=== PATIENT | female | born 1960 | race Caucasian/White ===

== ENCOUNTER 2019-10-23 10:59 | Emergency (ER) | payer OTHER, SELFPAY ==
[2019-10-23 11:11] VITALS: BP 172/95; PULSE 81; RESP 16; TEMP 37.1; O2SAT 100
--- NOTE | 2019-10-23 11:20 | ED.FEMALEGU ---
HPI - Female Genitourinary General Chief complaint: Urogenital-Female Stated complaint: uti Time Seen by Provider: 10/23/19 11:20 Source: patient Mode of arrival: ambulatory Limitations: no limitations History of Present Illness HPI Narrative: Deon Thomason is a 59 yo female history of urological problems comes to express care with complaints of symptoms of UTI for the past 4 days, no fever but has suprapubic pain and some flank pain. Related Data Allergies Allergy/AdvReac Type Severity Reaction Status Date / Time No Known Allergies Allergy Unverified 10/23/19 11:19 Review of Systems Review of Systems: Narrative: CONSTITUTIONAL: Denies fever, chills, sweats. EYES: Denies visual changes, redness, discharge. ENT: Denies rhinorrhea, congestion, sore throat, otalgia. CARDIOVASCULAR: Denies chest pain, palpitations, edema. RESPIRATORY: Denies dyspnea, wheezing, cough GASTROINTESTINAL: Denies abdominal pain, nausea, vomiting, diarrhea. GENITOURINARY:Has dysuria, Nohematuria, abnormal discharge SKIN: Denies rash or itching. NEUROLOGIC: Denies numbness, or focal weakness. PSYCHIATRIC: Denies anxiety or depression. [facility] Family History Family History Other No acute medical problems Social History Social History Smoking status: Never smoker Alcohol intake: current Gender identity (if verbalized by the patient): Female Comments At time of signature, I agree with nursing past medical, surgical, social and family history. There is no relevant family history pertinent to the presenting complaint. Discussed elevated blood pressure with patient will follow-up with primary Exam Narrative: Exam Narrative: GENERAL: This is a well-nourished, well-developed patient, in mild distress. HEAD: normocephalic, atraumatic. EYES: Sclera clear/white. Vision is grossly intact. EARS: External ears normal, Hearing grossly intact. NOSE: External nose normal without nasal discharge, nares without redness, no rhinorrhea. THROAT: Mucous membranes moist NECK: Neck supple, CARDIOVASCULAR: Regular rate and rhythm without murmurs, gallops, or rubs. RESPIRATORY: Clear to auscultation. Breath sounds equal bilaterally. No wheezes, rales, or rhonchi. GASTROINTESTINAL: Supra pubic soft, tender, SKIN: warm, intact with no suspicious lesions or rash, good texture and turgor. NEURO: awake, alert, and oriented to person, place and time. There were no obvious focal neurologic abnormalities. Steady gait EXTREMITIES: Normal range of motion. BACK: Nontender without deformity Course Vital Signs Vital signs: Vital Signs Temperature 98.7 F 10/23/19 11:11 Pulse Rate 81 10/23/19 11:11 Respiratory Rate 16 10/23/19 11:11 Blood Pressure 172/95 H 10/23/19 11:11 Pulse Oximetry 100 10/23/19 11:11 Temperature 98.7 F 10/23/19 11:11 Pulse Rate 81 10/23/19 11:11 Respiratory Rate 16 10/23/19 11:11 Blood Pressure 172/95 H 10/23/19 11:11 Pulse Oximetry 100 10/23/19 11:11 MDM - Female Genitourinary Differential Diagnosis Differential diagnosis: Likely urinary tract infection, cystitis and other Lab Data Labs: Urine Glucose Negative Reference Range: Negative Urine Bilirubin Negative Reference Range: Negative Urine Ketone Negative Reference Range: Negative Urine Specific [place] 1.010 Reference Range:1.001-1.035 Urine Blood 1+ Reference Range: Negative * * Urine pH 7.0 Reference Range: 5.0-9.0 Urine Protein Negative Reference Range: Negative Urine Urobilinogen 0.2 Reference Range: 0.2-1.0 Urine Nitrate Negative Reference Range: Negative
== END 2019-10-23 11:34 | disposition home or self-care (01) ==
PROVIDERS: Emergency Provider Nurse Practitioner
DX: N30.01 Acute cystitis with hematuria (principal)
CPT/HCPCS: 81003; 87077; 87086; 87088; 87186; 99213; G0463

== ENCOUNTER 2019-11-20 09:31 | Emergency (ER) | payer OTHER, SELFPAY ==
[2019-11-20 09:43] VITALS: BP 145/77; PULSE 67; RESP 16; TEMP 36.6; O2SAT 100
--- NOTE | 2019-11-20 09:49 | ED.GENADULT ---
HPI - General Adult General Chief complaint: Urogenital-Female Stated complaint: frequent urination/burning/cramping Time Seen by Provider: 11/20/19 10:02 Source: patient and RN notes reviewed Mode of arrival: ambulatory Limitations: no limitations History of Present Illness HPI narrative: This is a 59 years old female presented office for evaluation of possible UTI for about 5days. Symptoms began with lower abdominal cramping, pressure, urinary retention, urgency, frequency and pain. Symptoms reminiscent her previous UTI. Most recent UTI was back in August, given Keflex; which she completed and symptoms completed resolved then. Related Data Allergies Allergy/AdvReac Type Severity Reaction Status Date / Time No Known Allergies Allergy Unverified 10/23/19 11:19 Review of Systems Review of Systems: Narrative: CONSTITUTIONAL: Denies fever or feeling ill CARDIOVASCULAR: Denies chest pain RESPIRATORY: Denies dyspnea, cough GASTROINTESTINAL: Denies abdominal pain, nausea, vomiting GENITOURINARY: Denies vaginal discharge SKIN: Denies rash MUSCULOSKELETAL: Reports intermittent lower back aches at times NEUROLOGIC: Denies lightheaded All other systems reviewed are negative, except as documented in HPI. PMFSH Past Medical History Medical History (Updated 11/20/19 @ 10:10 by ANA Arnett) Hx of renal calculi Surgical History Surgical History (Updated 11/20/19 @ 09:51 by ANA Arnett) Hx of bladder repair surgery Family History Family History Other No acute medical problems Social History Social History Smoking status: Never smoker Alcohol intake: current Gender identity (if verbalized by the patient): Female Comments At time of signature, I agree with nursing past medical, surgical, social and family history. There is no relevant family history pertinent to the presenting complaint. Exam Narrative: Exam Narrative: GENERAL: This is a well-nourished, well-developed patient, in no apparent distress. CARDIOVASCULAR: Regular rate and rhythm without murmurs, gallops, or rubs. RESPIRATORY: Clear to auscultation. Breath sounds equal bilaterally. No wheezes, rales, or rhonchi. GASTROINTESTINAL: Abdomen soft, non-tender, nondistended, suprapubic tenderness with palpation. Bowel sounds are active. No hepato-splenomegaly, or palpable masses. No guarding. SKIN: warm, intact with no suspicious lesions or rash, good texture and turgor. NEURO: awake, alert, and oriented to person, place and time. There were no obvious focal neurologic abnormalities. Steady gait EXTREMITIES: Normal range of motion. BACK: No flank tenderness. [employer] Coma Scale Eye Opening: Spontaneous 4 [employer] Coma Scale Motor: Obeys Commands 6 [employer] Coma Scale Verbal: Oriented 5 Course Vital Signs Vital signs: Vital Signs Temperature 97.8 F 11/20/19 09:43 Pulse Rate 67 11/20/19 09:43 Respiratory Rate 16 11/20/19 09:43 Blood Pressure 145/77 H 11/20/19 09:43 Pulse Oximetry 100 11/20/19 09:43 Temperature 97.8 F 11/20/19 09:43 Pulse Rate 67 11/20/19 09:43 Respiratory Rate 16 11/20/19 09:43 Blood Pressure 145/77 H 11/20/19 09:43 Pulse Oximetry 100 11/20/19 09:43 Medical Decision Making MDM Narrative Medical decision making narrative: Discharge instructions reviewed with patient, as well as provided in writing per nursing staff. The instructions also include specific and strict return/GO TO THE ER as well as f/u information. All questions have been answered, and the patient deny any further questions with discharge and discharge plan. Differential Diagnosis Differential Diagnosis: Cystitis, Nephrolithiasis, bacterial vaginosis, Nephritis, candidiasis, vaginitis, pyelonephritis Medical Records Medical records reviewed: Yes I reviewed the patient's medical records. Vital Signs
== END 2019-11-20 10:30 | disposition home or self-care (01) ==
PROVIDERS: Emergency Provider Nurse Practitioner
DX: N30.01 Acute cystitis with hematuria (principal); Z87.442 Personal history of urinary calculi
CPT/HCPCS: 81003; 87077; 87086; 87088; 87186; 99213; G0463

== ENCOUNTER 2020-05-15 15:42 | Emergency (ER) | payer OTHER, SELFPAY ==
[2020-05-15 15:47] VITALS: BP 153/83; PULSE 97; RESP 16; TEMP 37; O2SAT 98
--- NOTE | 2020-05-15 16:03 | ED.URI ---
HPI - URI/Sore Throat General Chief Complaint: Upper Respiratory Infection Stated Complaint: Chills/dizzy/head congestion/can't eat Time Seen by Provider: 05/15/20 16:03 Source: patient and RN notes reviewed Mode of arrival: ambulatory Limitations: no limitations History of Present Illness HPI Narrative: 60-year-old female presents with concern for several day history of chills, dizziness when she lies down, head congestion, poor appetite, generally feeling ill. Reports she has been taking Tylenol and DayQuil with little relief. She denies loss of sense of taste or smell, denies known sick contacts. MD elicited complaint: nasal congestion Related Data Allergies Allergy/AdvReac Type Severity Reaction Status Date / Time No Known Allergies Allergy Verified 05/15/20 16:05 Review of Systems Review of Systems: Narrative: CONSTITUTIONAL: Reports malaise, chills. Denies sweats, or fever. EYES: Denies visual changes, redness, or discharge. ENT: Reports rhinorrhea, congestion. Denies sinus pain, otalgia and sore throat. CARDIOVASCULAR: Denies chest pain, palpitations, or edema. RESPIRATORY: Denies cough or dyspnea. GASTROINTESTINAL: Denies abdominal pain, nausea, vomiting. Reports poor appetite and diarrhea SKIN: Denies rash or itching. MUSCULOSKELETAL: Denies myalgia. NEUROLOGIC: Reports headache. All systems reviewed & are unremarkable except as noted in HPI and below PMFSH Past Medical History Medical History (Updated 05/15/20 @ 16:29 by Sherita Garcia NP) Hx of renal calculi Surgical History Surgical History (Updated 11/20/19 @ 09:51 by ANA Arnett) Hx of bladder repair surgery Family History Family History Other No acute medical problems Social History Social History Smoking status: Never smoker Alcohol intake: current Gender identity (if verbalized by the patient): Female Comments At time of signature, agree with nursing past medical, surgical, social and family history. There is no relevant family history pertinent to the presenting complaint Exam Narrative: Exam Narrative: GENERAL: Well-appearing, well-nourished, and in no acute distress. HEAD: Normocephalic EYES: PERRLA, conjunctivae clear ENT: Nares clear, turbinates erythematous, clear discharge. Mucous membranes moist. TM pearly clark with sharp light reflex bilaterally; no tragal tenderness. Oropharynx not erythematous without lesions. Tonsils not enlarged and without exudate, no drooling, no hoarseness, no trismus, uvula midline. NECK: Supple. No lymphadenopathy CHEST: Clear to auscultation, breath sounds equal. No wheezing, rhonchi, rales, or stridor. No respiratory distress, speaks in full sentences. HEART: Regular rate and rhythm. No murmur heard. SKIN: Warm, dry, no rash. NEURO: Alert and oriented x3. PSYCH: Normal mood and affect Course Course Emergency Course: Patient is aware of diagnosis, understands and agrees to treatment plan. Anticipatory guidance given. Patient agrees to follow-up as directed and is aware of reasons to seek care at the emergency department. Portions of this record may have been created with voice recognition software Vital Signs Vital signs: Vital Signs Temperature 98.6 F 05/15/20 15:47 Pulse Rate 97 05/15/20 15:47 Respiratory Rate 16 05/15/20 15:47 Blood Pressure 153/83 H 05/15/20 15:47 Pulse Oximetry 98 05/15/20 15:47 Temperature 98.6 F 05/15/20 15:47 Pulse Rate 97 05/15/20 15:47 Respiratory Rate 16 05/15/20 15:47 Blood Pressure 153/83 H 05/15/20 15:47 Pulse Oximetry 98 05/15/20 15:47 Reviewed. Patient has been instructed to follow up with her primary care provider within the next week regarding her elevated blood pressure today. MDM - URI/Sore Throat MDM Narrative Medical decision making narrative: Differential diagnosis considered: Amrie virus,
== END 2020-05-15 16:38 | disposition home or self-care (01) ==
PROVIDERS: Emergency Provider Nurse Practitioner
DX: J06.9 Acute upper respiratory infection, unspecified (principal); Z20.828 Contact with and (suspected) exposure to other viral communicable diseases
CPT/HCPCS: 87804; 99213; G0463

== ENCOUNTER 2020-05-16 06:57 | Outpatient (NON) | payer OTHER, SELFPAY ==
[2020-05-16 22:42] LABS: SARS-CoV-2 RNA PCR Positive
== END 2020-05-16 06:58 ==
LOC: ANHCOVIDDT 07:03
PROVIDERS: Visit Provider Nurse Practitioner
DX: U07.1 COVID-19 (principal)
CPT/HCPCS: 87635; C9803; U0003

== ENCOUNTER 2021-02-26 17:24 | Emergency (ER) | payer OTHER, SELFPAY ==
--- NOTE | 2021-02-26 17:27 | ED.FEMALEGU ---
HPI - Female Genitourinary General Chief complaint: Urogenital-Female Stated complaint: POS UTI Time Seen by Provider: 02/26/21 17:27 Source: patient and RN notes reviewed History of Present Illness HPI Narrative: Patient is a 61-year-old female who presents the urgent care with complaints of a possible UTI. Patient states that for the last 2 days she has been having some lower abdominal cramping when she urinates as well as cloudy urine. Patient states that these are her normal symptoms for UTI . Patient does have history of UTIs but denies of any treatment in the last 6 months. Patient denies of any fever, chills, nausea, vomiting. Patient has increased her water intake but denies of any use of [id number] medications. No other complaints. No acute distress noted. Patient aware of the plan of care. Some parts of this dictation were generated by voice recognition software and may contain typographical and/or grammatical inaccuracies. Related Data Allergies Allergy/AdvReac Type Severity Reaction Status Date / Time No Known Allergies Allergy Verified 05/15/20 16:05 Review of Systems Review of Systems: CONSTITUTIONAL: Denies fever, chills, or sweats. EYES: Denies visual changes, redness, or discharge. ENT: Denies rhinorrhea, congestion, sore throat, or otalgia. CARDIOVASCULAR: Denies chest pain, palpitations, or edema. RESPIRATORY: Denies cough or dyspnea. GASTROINTESTINAL: Denies abdominal pain, nausea, vomiting, or diarrhea. GENITOURINARY: reports of cloudy urine and suprapubic pressure with urination SKIN: Denies rash or itching. MUSCULOSKELETAL: Denies back pain, joint pain, or myalgia. NEUROLOGIC: Denies headache, numbness, or weakness. All other systems reviewed are negative, except as documented in HPI. [facility] Past Medical History Medical History (Updated 02/26/21 @ 17:49 by ANA Sandra) Hx of renal calculi Surgical History Surgical History (Updated 11/20/19 @ 09:51 by ANA Arnett) Hx of bladder repair surgery Family History Family History Other No acute medical problems Social History Social History Smoking status: Never smoker Alcohol intake: current Gender identity (if verbalized by the patient): Female Comments At the time of my signature, I reviewed and agree with the nursing past medical, surgical, social, and family history. There is no relevant family history pertinent to the patient complaint. Exam Narrative: GENERAL: This is a well-nourished, well-developed patient, in no apparent distress. HEAD: normocephalic, atraumatic. EYES: PERRL. Sclera clear/white. Vision is grossly intact. EARS: External ears normal NOSE: External nose normal with no obvious nasal discharge, nares without redness, no rhinorrhea. THROAT: Mucous membranes moist NECK: Neck supple CARDIOVASCULAR: Regular rate and rhythm without murmurs, gallops, or rubs. RESPIRATORY: Clear to auscultation. Breath sounds equal bilaterally. No wheezes, rales, or rhonchi. GASTROINTESTINAL: Abdomen soft, non-tender, nondistended. Bowel sounds are active. SKIN: warm, intact with no suspicious lesions or rash, good texture and turgor. NEURO: awake, alert, and oriented to person, place and time. There were no obvious focal neurologic abnormalities. EXTREMITIES: No clubbing, cyanosis, or edema. BACK: Negative bilateral CVA tenderness Course Vital Signs Vital signs: Vital Signs Temperature 98.1 F 02/26/21 17:33 Pulse Rate 89 02/26/21 17:33 Respiratory Rate 16 02/26/21 17:33 Blood Pressure 161/88 H 02/26/21 17:33 Pulse Oximetry 99 02/26/21 17:33 Temperature 98.1 F 02/26/21 17:33 Pulse Rate 89 02/26/21 17:33 Respiratory Rate 16 02/26/21 17:33 Blood Pressure 161/88 H 02/26/21 17:33 Pulse Oximetry 99 02/26/21 17:33 Reviewed-patient is informed that they may h
[2021-02-26 17:33] VITALS: BP 161/88; PULSE 89; RESP 16; TEMP 36.7; O2SAT 99
== END 2021-02-26 17:54 | disposition home or self-care (01) ==
PROVIDERS: Emergency Provider Nurse Practitioner Family
DX: N39.0 Urinary tract infection, site not specified (principal)
CPT/HCPCS: 81003; 87077; 87086; 87088; 87186; 99213; G0463

== ENCOUNTER → 2022-08-02 15:20 | Outpatient (CLI) | payer BC, SELFPAY ==
--- NOTE | ~2022-08-02 | MM_ITS ---
EXAMINATION: MM screening hilaria BI w ricky HISTORY: Screening TECHNIQUE: Craniocaudal and mediolateral oblique 3-D tomosynthesis images were obtained and synthetic 2-D images were generated. CAD analysis was submitted and interpreted. COMPARISON: No prior mammogram is available for comparison at this institution. BREAST PARENCHYMAL COMPOSITION: There are scattered areas of fibroglandular density. FINDINGS: There is no evidence of suspicious mass, calcification, or architectural distortion to sugg est malignancy in either breast. There has been no suspicious interval change. IMPRESSION: 1. No mammographic evidence of malignancy. 2. Recommend routine screening mammography in one year. BI-RADS Category 1: Negative Reviewed, dictated and finalized at location B. [employer] RELATIONS ADMINISTRATOR
== END ==
PROVIDERS: PCP Family Medicine Sports Medicine; Visit Provider Family Medicine Sports Medicine
DX: Z12.31 Encounter for screening mammogram for malignant neoplasm of breast (principal)
CPT/HCPCS: 77063; 77067

== ENCOUNTER 2024-01-17 09:14 | Emergency (ER) | payer BC, SELFPAY ==
[2024-01-17 09:26] VITALS: BP 152/91; PULSE 82; RESP 16; TEMP 36.3; O2SAT 98
--- NOTE | 2024-01-17 09:38 | ED.BACK ---
HPI - Back Pain/Injury General Chief Complaint: Back Pain/Injury Stated Complaint: back pain Time Seen by Provider: 01/17/24 09:39 Source: patient, RN notes reviewed and old records reviewed Mode of arrival: ambulatory Limitations: no limitations History of Present Illness HPI Narrative: 63 year old female accompanied by spouse with complaints of right sided lower back pain for the past 5-6 days after lifting heavy. Patient reports that pain is intermittent with some muscle spasms,pulling sensation and sharp pain over right SI joint with position changes. Patient reports no pain radiating into her legs, denies any midline spinal pain or any paravertebral muscle pain. Patient reports increased pain over right SI joint area with position changes and with bending. Patient reports no bowel or bladder dysfunction or any saddle paraesthesia. Patient reports that she had spinal surgery in 2004 previously to lumbar spine, has been taking Tylenol and Ibuprofen for her discomfort with minimal pain decrease. MD elicited complaint: back pain Pertinent past history: other ( previous back surgery) Onset (ago): day(s) (5-6 days) Pain scale (0-10): 4 Quality: sharp and other (soreness) Treatments prior to arrival: NSAIDS and acetaminophen Work related injury: No Related Data Allergies Allergy/AdvReac Type Severity Reaction Status Date / Time No Known Allergies Allergy Verified 01/17/24 09:26 Review of Systems Review of Systems: CONSTITUTIONAL: Denies fever, chills, or sweats. CARDIOVASCULAR: Denies chest pain, palpitations, or edema. RESPIRATORY: Denies cough or dyspnea. GASTROINTESTINAL: Denies abdominal pain, nausea, vomiting, or diarrhea. GENITOURINARY: Denies dysuria or hematuria. SKIN: Denies rash or itching. MUSCULOSKELETAL: Reports right back pain without radiation. Joint pain or myalgia. NEUROLOGIC: Denies headache, numbness, or weakness. All systems reviewed & are unremarkable except as noted in HPI and below PMFSH Past Medical History Medical History (Updated 01/17/24 @ 12:37 by Sydnee Singh NP) Back pain Hx of renal calculi Surgical History Surgical History (Updated 01/17/24 @ 09:55 by Sydnee Singh NP) H/O Spinal surgery History of cholecystectomy Hx of bladder repair surgery Family History Family History Other No acute medical problems Social History Social History (Updated 01/17/24 @ 12:41 by Sydnee Singh NP) Smoking status: Never smoker Alcohol intake: current Substance use type: does not use Living arrangements: with family Gender identity (if verbalized by the patient): Female Comments At time of signature, agree with nursing past medical, surgical, social and family history. There is no relevant family history pertinent to the presenting complaint Exam Narrative: GENERAL: Well-appearing, well-nourished, and in no acute distress. HEAD: Normocephalic, atraumatic. EYES: PERRLA and EOMI. NECK: Supple. No lymphadenopathy. CHEST: Clear to auscultation. No respiratory distress. SAO2 98% on room air HEART: Regular rate and rhythm. Distal pulses palpable and equal, cap refill <3 seconds ABDOMEN: Soft, nontender, nondistended, normal active bowel sounds, no palpable or pulsatile masses. No CVA tenderness MUSCULOSKELETAL: Normal range of motion and strength in all extremities; 5/5 strength with hip flexion and extension, dorsiflexion and extension, knee flexion and extension, plantar flexion and extension. Normal sensation in dermatomal distributions with sensitivity to light touch and pain. No midline back tenderness to palpation. No paraspinal tenderness. Transfers from lying to sitting to standing slowly with increased pain with position changes, palpable pain over right SI joint area SKIN: Warm, dry, no rash. No ecchymosis, erythema, open wounds to back. NEURO: No focal deficits. Alert and oriented x3. Refl
== END 2024-01-17 10:06 | disposition home or self-care (01) ==
PROVIDERS: Emergency Provider Registered Nurse; PCP Family Medicine Sports Medicine
DX: M54.50 Low back pain, unspecified (principal)
CPT/HCPCS: 99213; G0463

== ENCOUNTER 2024-02-27 15:19 | Outpatient (CLI) | payer BC, SELFPAY ==
--- NOTE | ~2024-02-27 | MM_ITS ---
EXAMINATION: MM screening hilaria BI w ricky HISTORY: Screening TECHNIQUE: Craniocaudal and mediolateral oblique 3-D tomosynthesis images were obtained and synthetic 2-D images were generated. CAD analysis was submitted and interpreted. COMPARISON: 08/02/2022 BREAST PARENCHYMAL COMPOSITION: Dense: The breasts are heterogeneously dense, which may obscure small masses FINDINGS: There is no evidence of suspicious mass, calcification, or architectural distortion to sugg est malignancy in either breast. There has been no suspicious interval change. IMPRESSION: 1. No mammographic evidence of malignancy. 2. Recommend routine screening mammography in one year. BI-RADS Category 1: Negative Reviewed, dictated and finalized at location B.
== END 2024-02-27 15:20 | disposition home or self-care (01) ==
LOC: MICIMG 15:19
PROVIDERS: PCP Family Medicine Sports Medicine; Visit Provider Family Medicine Sports Medicine
DX: Z12.31 Encounter for screening mammogram for malignant neoplasm of breast (principal)
CPT/HCPCS: 77063; 77067

== ENCOUNTER 2024-08-17 16:30 | Emergency (ER) | payer BC, SELFPAY ==
--- NOTE | 2024-08-17 16:30 | ED_ITS ---
HPI - Extremity Injury (Lower) General Chief Complaint: Extremity Problem,Nontraumatic Stated Complaint: L KNEE PAIN Source: patient and RN notes reviewed Mode of arrival: ambulatory Limitations: no limitations History of Present Illness HPI Narrative: Patient is a 64-year-old female who presents to the [facility] with complaints left knee and lower leg pain. She states that she developed left medial knee pain on . She states that the pain is now in the posterior knee and the left posterior lower leg. She describes the pain as an aching. The pain has worsened over the last few days. She denies known injury. However, there is mild swelling to both the left knee and left lower leg on examination. Patient is neurovascularly intact distally. Sensation is intact. Related Data Allergies Allergy/AdvReac Type Severity Reaction Status Date / Time No Known Allergies Allergy Verified 01/17/24 09:26 Review of Systems Review of Systems: CONSTITUTIONAL: Denies fever, chills, or sweats. EYES: Denies visual changes, redness, or discharge. ENT: Denies otalgia and sore throat CARDIOVASCULAR: Denies chest pain, palpitations, or edema. RESPIRATORY: Denies cough or dyspnea. GASTROINTESTINAL: Denies abdominal pain, nausea, vomiting, or diarrhea. GENITOURINARY: Denies dysuria or hematuria. SKIN: Denies rash or itching. MUSCULOSKELETAL: Reports left knee and left lower leg pain. NEUROLOGIC: Denies headache, numbness, or weakness. Pertinent positives per HPI. [facility] Past Medical History Medical History Back pain Hx of renal calculi Surgical History Surgical History H/O Spinal surgery History of cholecystectomy Hx of bladder repair surgery Family History Family History Other No acute medical problems Social History Social History Smoking status: Never smoker Alcohol intake: current Substance use type: does not use Living arrangements: with family Gender identity (if verbalized by the patient): Female Comments At the time of my signature, I reviewed and agree with the nursing past medical, surgical, social, and family history. There is no relevant family history perti nent to the patient complaint. Exam Narrative: GENERAL: This is a well-nourished, well-developed patient, in no apparent distress. HEAD: normocephalic, atraumatic. EYES: Sclera clear/white. Vision is grossly intact. EARS: External ears normal. Hearing grossly intact. NOSE: External nose normal with no obvious nasal discharge, nares without redness, no rhinorrhea. THROAT: Mucous membranes moist, posterior pharynx clear. NECK: Neck supple, non-tender without lymphadenopathy, masses or thyromegaly. CARDIOVASCULAR: Regular rate and rhythm without murmurs, gallops, or rubs. RESPIRATORY: Clear to auscultation. Breath sounds equal bilaterally. No wheezes, rales, or rhonchi. GASTROINTESTINAL: Abdomen soft, non-tender, nondistended. Bowel sounds are active. No hepato-splenomegaly, or palpable masses. No guarding. SKIN: warm, intact with no suspicious lesions or rash, good texture and turgor. NEURO: awake, alert, and oriented to person, place and time. There were no obvious focal neurologic abnormalities. EXTREMITIES: Left knee and posterior lower leg tenderness. Mild swelling. No discoloration. Distal neurovascular and motor status intact. Course Course Level of Care: Express Care Visit Vital Signs Vital signs: Vital Signs Temperature 96.5 F L 08/17/24 16:39 Pulse Rate 89 08/17/24 16:39 Respiratory Rate 16 08/17/24 16:39 Blood Pressure 147/85 H 08/17/24 16:39 Pulse Oximetry 98 08/17/24 16:39 Temperature 96.5 F L 08/17/24 16:39 Pulse Rate 89 08/17/24 16:39 Respiratory Rate 16 08/17/24 16:39 Blood Pressure 147/85 H 08/17/24 16:39 Pulse Oximetry 98 08/17/24 16:39 Reviewed Transfer Transfered to: [facility] Transportation: Other (private vehicle) Transfer rationale: Further testing, evaluation, and treatment left posterior lower leg and left knee pain. Rule out DVT. Accepting physician: Dr. Tucker [facility] - Extremity Injury (Lower) [facility] Narrative Medical decision making narrative: Patient was transferred to [facility] Emergency Department for further testing and treatment of left posterior lower leg and left knee pain. Recommended rule out DVT. Accepting physician at [facility] was Dr. Tucker. Patient will be transferred via private vehicle. Differential Diagnosis Differential diagnosis: Likely acute internal derangement of knee and other (knee sprain, DVT left lower extremity) Critical Care Time Critical Care Time Critical Care Time: No Discharge Plan Discharge Clinical Impression: Pain in left lower leg Patient Disposition: Acute Care Hospital Condition: Stable Additional Instructions: Go directly to [facility] emergency department for further evaluation, testing, and treatment. Patient Language: Taiwanese Prescriptions: No Action prednisone 20 mg tablet 20 mg PO BID Qty: 10 0RF cyclobenzaprine 10 mg tablet 10 mg PO TID PRN (Reason: muscle spasm) Qty: 20 0RF Rx Instructions: no driving or operating machinery while taking ibuprofen 600 mg tablet 600 mg PO QID PRN (Reason: pain) Qty: 30 0RF Rx Instructions: take with food Follow-up/Referrals: UNKNOWN,DOCTOR [Primary Care Provider] - Time of Disposition: 16:55
[2024-08-17 16:39] VITALS: BP 147/85; PULSE 89; RESP 16; TEMP 35.8; O2SAT 98
== END 2024-08-17 16:52 | disposition short-term general hospital (02) ==
PROVIDERS: Emergency Provider Nurse Practitioner
DX: M79.662 Pain in left lower leg (principal); M25.562 Pain in left knee
CPT/HCPCS: 99212; G0463

== ENCOUNTER 2024-08-17 17:10 | Emergency (ER) | payer BC, SELFPAY ==
--- NOTE | ~2024-08-17 | US_ITS ---
EXAMINATION: US venous doppler [facility] DATE: 08/17/2024 18:19 INDICATION: Left lower extremity pain and swelling TECHNIQUE: Grayscale ultrasound images without and with compression and Doppler ultrasound images of the left lower extremity veins were obtained. COMPARISON: None. FINDINGS: The visualized portions of left common femoral vein, profunda (deep) femoral vein, femoral vein, popl iteal vein, peroneal veins, posterior tibial veins, and greater saphenous vein outflow are patent. IMPRESSION: 1. No deep venous thrombosis within the left lower extremity, as detailed above. Reviewed, dictated and finalized at location A. IMPRESSION: 1. No deep venous thrombosis within the left lower extremity, as detailed abojessica martínez.
--- NOTE | ~2024-08-17 | XR_ITS ---
HISTORY: L knee pain, no injury COMPARISON: None TECHNIQUE: 3 views of the left knee were performed FINDINGS: No acute or subacute fracture, erosion, lytic or sclerotic lesion. Medial tibiofemoral joint space narrowing is identified. A dense suprapatellar joint effusion is identified. The infrapatellar joint space is clear. IMPRESSION: Dense suprapatellar joint effusion. No acute fracture or dislocation. Reviewed, dictated and finalized at location A. IMPRESSION: Dense suprapatellar joint effusion. No acute fracture or dislocati on.
[2024-08-17 17:14] VITALS: BP 166/92; PULSE 90; RESP 16; TEMP 36.6; O2SAT 98
--- NOTE | 2024-08-17 17:54 | ED.EXTPRO ---
HPI - Extremity Problem General Chief complaint: Extremity Problem,Nontraumatic <Grant Angel PA-C - Last Filed: 08/17/24 18:50> Stated complaint: Sent by for poss DVT LLE <Grant Angel PA-C - Last Filed: 08/17/24 18:50> Time Seen by Provider: 08/17/24 20:34 <Grant Angel PA-C - Last Filed: 08/17/24 18:50> Focused HPI: This is a 64-year-old female who presents to the ED for chief complaint of left knee pain for the past couple of days. Patient was sent by urgent care to rule out DVT. Denies any injuries to the left knee. Reports pain to the posterior left knee and radiates down into the calf. Denies numbness or weakness. GENERAL: Well-appearing, well-nourished, and in no acute distress. HEAD: Normocephalic, atraumatic. CHEST: Clear to auscultation. No respiratory distress. HEART: Regular rate and rhythm. NEURO: Alert and oriented x3. Patient screened in triage and initial orders placed. Additional care and disposition to be based upon diagnostic testing and treatment. <Grant Angel PA-C - Last Filed: 08/17/24 18:50> Source: patient <Grant Angel PA-C - Last Filed: 08/17/24 18:50> Mode of arrival: ambulatory <Grant Angel PA-C - Last Filed: 08/17/24 18:50> Limitations: no limitations <YULISA Gr Last Filed: 08/17/24 18:50> Related Data Allergies/Adverse reactions: Allergies Allergy/AdvReac Type Severity Reaction Status Date / Time No Known Allergies Allergy Verified 08/17/24 17:11 <Grant Angel PA-C - Last Filed: 08/17/24 18:50> Review of Systems Review of Systems: All systems reviewed & are unremarkable except as noted in HPI and below <Do Tran PA-C - Last Filed: 08/17/24 21:32> PMFSH Past Medical History Medical History: Medical History Back pain Hx of renal calculi <Grant Angel PA-C - Last Filed: 08/17/24 18:50> Surgical History Surgical History: Surgical History H/O Spinal surgery History of cholecystectomy Hx of bladder repair surgery <Grant Angel PA-C - Last Filed: 08/17/24 18:50> Family History Family History: Family History Other No acute medical problems <YULISA Gr Last Filed: 08/17/24 18:50> Social History Social History: Social History Smoking status: Never smoker Alcohol intake: current Substance use type: does not use Living arrangements: with family Gender identity (if verbalized by the patient): Female <Grant Angel PA-C - Last Filed: 08/17/24 18:50> Exam Narrative: GENERAL: Well-appearing, well-nourished, and in no acute distress. HEAD: Normocephalic, atraumatic. EYES: EOMI. EXTREMITIES: Normal range of motion. No erythema. Normal DP pulse. Normal sensation. Mild edema about the left knee anteriorly SKIN: Warm, dry, no rash. NEURO: No focal deficits. Alert and oriented x3. PSYCH: Normal mood and affect <Do Tran PA-C - Last Filed: 08/17/24 21:32> Course Course Emergency Course: Patient updated on her workup and agrees with plan of care <Do Tran PA-C - Last Filed: 08/17/24 21:32> Vital Signs Vital signs: Vital Signs Temperature 97.8 F 08/17/24 17:14 Pulse Rate 90 08/17/24 17:14 Respiratory Rate 16 08/17/24 17:14 Blood Pressure 166/92 H 08/17/24 17:14 Pulse Oximetry 98 08/17/24 17:14 Temperature 98.4 F 08/17/24 19:51 Pulse Rate 79 08/17/24 21:22 Respiratory Rate 18 08/17/24 21:22 Blood Pressure 151/82 H 08/17/24 21:22 Pulse Oximetry 97 08/17/24 21:22 <Grant Angel PA-C - Last Filed: 08/17/24 18:50> Vital Signs Temperature 97.8 F 08/17/24 17:14 Pulse Rate 90 08/17/24 17:14 Respiratory Rate 16 08/17/24 17:14 Blood Pressure 166/92 H 08/17/24 17:14 Pulse Oximetry 98 08/17/24 17:14 Temperature 98.4 F 08/17/24 19:51 Pulse Rate 79 08/17/24 21:22 Respiratory Rate 18 08/17/24 21:22 Blood Pressure 151/82 H 08/17/24 21:22 Pulse Oximetry 97 08/17/24 21:22 <Do Tran PA-C - Last Filed: 08/17/24 21:32> MDM - Extremity (Nontraumatic) MDM Narrative Medical decision making narrative: Patient presents the emergency department for swollen left knee joint. She is afebrile and nontoxic appearing. Mild edema about the knee anteriorly, no overlying erythema or warmth. She is neurovascularly intact. Sent to the ER to rule out DVT. Left lower extremity venous Doppler without evidence of DVT. Knee x-ray shows a suprapatellar joint effusion, otherwise no acute findings. Patient updated on her workup and agrees with plan of care. Reports she has a knee brace, will be started on anti-inflammatories. She is to follow up with Orthopedics. She was given warnings to return to the ER <Do Tran PA-C - Last Filed: 08/17/24 21:32> Differential Diagnosis Differential diagnosis: Likely deep vein thrombosis of lower extremity and other (Knee sprain, osteoarthritis, tendinitis, meniscal injury) <Do Tran PA-C - Last Filed: 08/17/24 21:32> Imaging Data Radiologist's impression: ITS Impressions Venous Doppler Study 08/17/24 18:28 IMPRESSION: 1. No deep venous thrombosis within the left lower extremity, as detailed above. Knee X-Ray 08/17/24 18:37 IMPRESSION: Dense suprapatellar joint effusion. No acute fracture or dislocation. <Do Tran PA-C - Last Filed: 08/17/24 21:32> Critical Care Time Critical Care Time Critical Care Time: No <Do Tran PA-C - Last Filed: 08/17/24 21:32> Discharge Plan Discharge Clinical Impression: Acute pain of left knee <Grant Angel PA-C - Last Filed: 08/17/24 18:50> Patient Disposition: Home, Self-Care <Grant Angel PA-C - Last Filed: 08/17/24 18:50> Condition: Stable <Grant Angel PA-C - Last Filed: 08/17/24 18:50> Instructions: Swollen Knee Joint (ED) <Grant Angel PA-C - Last Filed: 08/17/24 18:50> Additional Instructions: Return to the ER if you experience fever, redness and swelling of your extremity, numbness or any other symptoms that are concerning to you Wear brace. Ice and elevate extremity. Tylenol as needed for pain. Naproxen as needed for pain Follow up with orthopedics for further care. <Grant Angel PA-C - Last Filed: 08/17/24 18:50> Patient Language: Mauritanian <Grant Angel PA-C - Last Filed: 08/17/24 18:50> Prescriptions: New naproxen 250 mg tablet 250 mg PO BID PRN (Reason: pain) 5 Days Qty: 10 0RF No Action prednisone 20 mg tablet 20 mg PO BID Qty: 10 0RF cyclobenzaprine 10 mg tablet 10 mg PO TID PRN (Reason: muscle spasm) Qty: 20 0RF Rx Instructions: no driving or operating machinery while taking ibuprofen 600 mg tablet 600 mg PO QID PRN (Reason: pain) Qty: 30 0RF Rx Instructions: take with food <Grant Angel PA-C - Last Filed: 08/17/24 18:50> Follow-up/Referrals: Mohit Cohn MD [Physician] - UNKNOWN,DOCTOR [Primary Care Provider] - <Grant Angel PA-C - Last Filed: 08/17/24 18:50>
[2024-08-17] MEDS: IBUPROFEN 400 MG TABLET 800 MG PO (17:56)
[2024-08-17] MEDS: ACETAMINOPHEN 500 MG TABLET 1000 MG PO (17:56)
--- OUTSIDE RECORDS SUMMARY | 2024-08-17 18:06 | XMS_ITS | Clinical Summary ---
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 Gender Identity Not on file Sexual Orientation Not on file Plan of Treatment Health Maintenance Due Date Last Done Comments DTAP/TDAP/TD VACCINES (1 - Tdap) 01/21/1980 CERVICAL CANCER SCREENING 1991 BREAST CANCER SCREENING 2001 COLORECTAL SCREENING 2006 Colorectal Cancer Screening 2006 FIT-DNA Q 3 years 2006 FIT/FOBT Q 1 year 2006 Flex Sig/CT Colonography Q 5 years 2006 ZOSTER VACCINE (1 of 2) 2011 INFLUENZA VACCINE (#1) 2024 RSV VACCINE (60+ or ) (1 - 1-dose 75+ series) 01/21/2036 Care Teams Gsa Coordinator Relationship Specialty Start Date End Date Jean Gallo MD [address] [place] [address] PCP - General 09/20/04
--- OUTSIDE RECORDS SUMMARY | 2024-08-17 18:06 | XMS_ITS | Clinical Summary ---
Author Organization [facility] Address [address] [address] Phone Care Team Providers Care Special Weapons And Tactics Officer Name Role Phone No, Physician Primary Care Provider [phone] Allergies No known active allergies Medications MULTIVITAMIN ORAL Take by mouth daily Active CALCIUM CITRATE-VITAMIN D3 ORAL Take by mouth daily Active omega-3 fatty acids-fish oil 300-1,000 mg capsule Take 2 capsules (2 g total) by mouth daily Active Active Problems Problem Noted Date Diagnosed Date Personal history of colonic polyps 10/16/2023 Encounter for screening colonoscopy 10/16/2023 Hypertriglyceridemia 07/01/2022 Encounters Date Type Department Care Team Description 06/28/2024 9:41 AM BLADE OPERATOR Anesthesia Event [address] [address] Valerie Rocha MD Reinersman, Chelsea Couch, AGRICULTURAL AND FORESTRY SUPERVISOR 06/28/2024 9:00 AM BLADE OPERATOR - 06/28/2024 9:30 AM BLADE OPERATOR Surgery [address] [address] Denisse Parmar MD COLONOSCOPY 06/28/2024 8:15 AM BLADE OPERATOR - 06/28/2024 10:41 AM BLADE OPERATOR Hospital Encounter [address] [address] Denisse Parmar MD Discharge Disposition: Discharge to home or self care from Last 3 Months Immunizations Immunization Administration Dates Next Due Influenza, Quadrivalent, [place] l Culture-based MDCK, Antibiotic Free, Intramuscular 03/13/2019 Influenza, Quadrivalent, [place] Culture-based MDCK, Preservative Free, Antibiotic Free, Intramuscular 05/13/2023,03/27/2018 Influenza, Quadrivalent, Spl it, Preservative Free, Intramuscular 03/21/2022 Influenza, Trivalent, Preservative Free, Intramu scular 05/29/2014 ZOSTER Recombinant 11/01/2022,07/05/2022 Surgical History Surgery Date Site/Laterality Comments LAPAROSCOPIC CHOLECYSTECTOMY LUMBAR SPINE SURGERY for herniated disc (?microdiscectomy) OTHER SURGICAL HISTORY bladder reflux surgery as child COLONOSCOPY 06/28/2024 Medical History Medical History Date Comments No pertinent past medical history Family History Medical History Relation Name Comments No Known Problems Father Atrial fibrillation Mother Diverticulosis Mother Breast cancer Mother's Sister Colon cancer Neg Hx Relation Name Status Comments Father Mother Mother's Sister Alive Social History Tobacco Use Types Packs/Day Years Used Date Smoking Tobacco: Never Smokeless Tobacco: Never Tobacco Cessation:Counseling Given: Not Answered AUDIT-C Answer Date Recorded Q1: How often do you have a drink containing alc ohol? Monthly or less 06/25/2024 Q2: How many drinks containi ng alcohol do you have on a typical day when you are drinking? 1 or 2 06/25/2024 Q3: How often do you have si x or more drinks on one occasion? Never 06/25/2024 PHQ-2 Answer Date Recorded PHQ-2 Total Score (If total score is 3 or more points, staff should administer the PHQ-9) 0 07/02/2023 Personal Safety Answer Date Recorded Have you ever been in or are you currently in a harmful physical or emotional relationship or is someone making you feel afraid or unsafe? Denies 06/28/2024 Comments No Sex and Gender Information Value Date Recorded Sex Assigned at Not on file Legal Sex Female 5:38 PM BLADE OPERATOR Gender Identity Not on file Sexual Orientation Not on file Obstetrics History Last Filed Vital Signs Vital Sign Reading Time Taken Comments Blood Pressure 120/77 06/28/2024 10:31 AM BLADE OPERATOR Pulse 81 06/28/2024 10:31 AM BLADE OPERATOR Temperature 36.8 C (98.2 F) 06/28/2024 10:31 AM BLADE OPERATOR Respiratory Rate 18 06/28/2024 10:31 AM BLADE OPERATOR Oxygen Saturation 95% 06/28/2024 10:31 AM BLADE OPERATOR Inhaled Oxygen Concentration - - Weight 70.3 kg (155 lb) 06/28/2024 8:37 AM BLADE OPERATOR Height 177.8 cm (5' 10 ) 06/28/2024 8:37 AM BLADE OPERATOR Body Mass Index 22.24 06/28/2024 8:37 AM BLADE OPERATOR Plan of Treatment Health Maintenance Due Date Last Done Comments Cervical Cancer Screening 1960 Hepatitis C Screening 1960 DTaP/Tdap/Td Vaccine (1 - Tdap) 01/21/1972 Hepatitis B Screening 1979 Covid-19 Vaccine (3 - season) 2024 09/22/2020, 08/31/2020 Influenza Vaccine (#1) 2024 , 03/21/2022, 03/13/2019, Additional history exists Depression Screening 07/02/2024 07/02/2023, 07/01/19 Regular Well Visit/Exam 18-64 07/02/2024 07/02/2023, 07/01/2022 Breast Cancer Screening-Mammogram 02/26/2025 02/27/2024, 08/02/2022, 12/14/2014 Colon Cancer Screening-Colonoscopy 06/28/2034 06/28/2024, 06/28/2024 Zoster Vaccine Completed 11/01/2022, 07/05/2022 Pneumococcal vaccine <65 Aged Out No longer eligible based on patient's age to complete this topic Procedures Procedure Name Priority Date/Time Associated Diagnosis Comments COLONOSCOPY 06/28/2024 9:36 AM BLADE OPERATOR Personal history of colonic polyps Encounter for screening colonoscopy [facility] COLONOSCOPY Routine 06/28/2024 9:34 AM BLADE OPERATOR COLONOSCOPY 06/28/2024 8:25 AM BLADE OPERATOR MAMMOGRAPHY Schedule Routine, Read Routine (OP Routine) 02/27/2024 2:28 PM CDT from Last 3 Months or Most Recently Relevant to Health Maintenance Results * HM COLONOSCOPY (06/28/2024 9:34 AM BLADE OPERATOR) us Historical Provider HEALTH MAINTENANCE Final Result * Colonoscopy (06/28/2024 8:25 AM BLADE OPERATOR) Anatomical Region Laterality Modality Other Narrative Procedure Note Denisse Parmar MD - 06/28/2024 8:25 AM CST [facility] Patient Name: Nova Thomason Procedure Date: 06/28/2024 8:25 AM Date of : 1960 Admit Type: Outpatient Age: 64 Gender: Female Attending MD: Denisse Parmar M.D. [facility] 3 Note Status: Finalized Patient Profile: This is a 64 year old female history of hypertriglyceridemia here for colon polyp surveillance. Remote colonoscopy per patient with benign polyps. No family hx of colon cancer. Procedure: Colonoscopy Indications: High risk colon cancer surveillance: Personalhistory of colonic polyps, Last colonoscopy 10 years ago Referring MD: Amber Magaña M.D. Providers: Denisse Parmar M.D. Impression: - Hemorrhoids found on perianal exam. - Diverticulosis in the sigmoid colon, in the descending colon and in the transverse colon. - External and internal hemorrhoids. - No specimens collected. Recommendation: - Patient has a contact number available for emergencies. The signs and symptoms of potential delayed complications were discussed with thepatient. Return to normal activities tomorrow. Written discharge instructions were provided to thepatient. - Discharge patient to home (with escort). - High fiber diet. - Continue present medications. - Repeat colonoscopy in 10 years for screening purposes. - Return to referring physician as previously scheduled. Medicines: Monitored Anesthesia Care Complications: No immediate complications. Estimated Blood Loss: Estimated blood loss: none. Procedure: Pre-Anesthesia Assessment: - Prior to the procedure, a History and Physicalwas performed, and patient medications and allergieswere reviewed. The patient is competent. The risks and benefits of the procedure and the sedation optionsand risks were discussed with the patient. Allquestions were answered and informed consent was obtained. Patient identification and proposed procedure were verified by the physician, the intake specialist and the pharmacy picking technician in the endoscopy suite. Mental Status Examination: normal. Prophylactic Antibiotics: The patient does not require prophylactic antibiotics. Prior Anticoagulants: The patient has taken no anticoagulant or antiplatelet agents. Afterreviewing the risks and benefits, the patient was deemed in satisfactory condition to undergo the procedure.The anesthesia plan was to use monitored anesthesiacare (MAC). Immediately prior to administration of medications, the patient was re-assessed foradequacy to receive sedatives. The heart rate, respiratory rate, oxygen saturations, blood pressure, adequacyof pulmonary ventilation, and response to care were monitored throughout the procedure. The physical status of the patient was re-assessed after the procedure. The benefits, risks and alternatives of theprocedure and sedation were discussed and informed consentwas obtained. All questions were answered. Please referto the signed informed consent document in the medical record. The bowel preparation used was Miralax via split dose instruction. The bowel preparation usedwas bisacodyl tablets via split dose instruction. The scope was passed under direct vision. The Pediatric Colonoscope PCF-H190L [id number] was introducedthrough the anus and advanced to the the cecum, identifiedby appendiceal orifice and ileocecal valve. The colonoscopy was performed without difficulty. The patient tolerated the procedure well. The qualityof the bowel preparation was good. Bowel prep was administered using a split dose. Findings: Hemorrhoids were found on perianal exam. Multiple small and large-mouthed diverticula were found in thesigmoid colon, descending colon and transverse colon. External and internal hemorrhoids were found during retroflexion. Denisse Parmar M.D. 06/28/2024 10:03:30 AM Number of Addenda: 0 Note Initiated On: 06/28/2024 8:25 AM Procedure Code(s): --- Professional --- G0105, Colorectal cancer screening; colonoscopy on individual at high risk --- Technical --- G0105, Colorectal cancer screening; colonoscopy on individual at high risk Diagnosis Code(s): --- Professional --- Z86.010, Personal history of colonic polyps K64.8, Other hemorrhoids K57.30, Diverticulosis of large intestine without perforation orabscess without bleeding --- Technical --- Z86.010, Personal history of colonic polyps K64.8, Other hemorrhoids K57.30, Diverticulosis of large intestine without perforation orabscess without bleeding CPT copyright 2020 [employer]. All rights reserved. The codes documented in this report are preliminary and upon capsule machine operator reviewmay be revised to meet current compliance requirements. Recognized by the [employer] for promoting quality in endoscopy Denisse Parmar MD ENDOSCOPY PROCEDURES Final Resul t * MAMMOGRAPHY (02/27/2024 2:28 PM CDT) Anatomical Region Laterality Modality Breast Mammography Historical Provider IMG MAMMO PROCEDURES Mona l Result from Last 3 Months or Most Recently Relevant to Health Maintenance Insurance [facility] Advance Directives For more information, please contact: [phone] * Full Code (Latest Code Status on File) Date Activated Date Inactivated Comments 06/28/2024 8:30 AM 06/28/2024 2:46 PM * Full Code Date Activated Date Inactivated Comments 06/28/2024 8:30 AM 06/28/2024 8:30 AM Care Teams Special Weapons And Tactics Officer Relationship Specialty Start Date End Date No, Physician PCP - General 06/17/24
--- OUTSIDE RECORDS SUMMARY | 2024-08-17 18:06 | XMS_ITS | Encounter Summary ---
Author Organization [facility] Address [address] [place] [address] Care Team Providers Care Thrill Performer Name Role Phone Jean Gallo MD Primary Care Provider [phone] Encounter Details Date Type Department Care Team (Latest Contact Info) Description 09/20/2004 Outpatient Historical [facility] Mark Miller MD NO ADDRESS ON FILE LUMBAR DISC DISPLACEMENT (Primary Dx) Social History Tobacco Use Types Packs/Day Years Used Date Smoking Tobacco: Never Assessed Comments Unknown Sex and Gender Information Value Date Recorded Sex Assigned at Not on file Legal Sex Female 4:24 AM RETAIL WIRELESS ASSOCIATE Gender Identity Not on file Sexual Orientation Not on file documented as of this encounter Plan of Treatment Not on file documented as of this encounter Procedures Procedure Name Priority Date/Time Associated Diagnosis Comments POC , URINE Routine 09/20/2004 8:33 AM CDT HEMOGLOBIN AND HEMATOCRIT Routine 09/14/2004 7:56 AM CDT documented in this encounter Results * POC , URINE (09/20/2004 8:33 AM CDT) HCG QUAL URINE Negative Negative INTER FACE SYSTEM SPECIFIC GRAVITY UA 1.020 1.001 - 1.035 INTERFACE SYSTEM 09/20/2004 8:33 AM CDT us Mark Miller MD POINT OF CARE TESTING Final R esult INTERFACE SYSTEM Refer to clinic/hospital department * HEMOGLOBIN AND HEMATOCRIT (09/14/2004 7:56 AM CDT) HEMOGLOBIN 13.1 11.8 - 14.8 g/dL INTERFACE SYSTEM HEMATOCRIT 38.9 35.5 - 44.0 % INTERFACE SYSTEM 09/14/2004 7:56 AM CDT us Mark Miller MD HEMATOLOGY ORDERABLES Final R esult INTERFACE SYSTEM Refer to clinic/hospital department documented in this encounter Visit Diagnoses Diagnosis Displacement of lumbar intervertebral disc without myelopathy- Primary documented in this encounter Care Teams Thrill Performer Relationship Specialty Start Date End Date Jean Gallo MD [address] [place] [address] PCP - General 09/20/04 documented as of this encounter
--- OUTSIDE RECORDS SUMMARY | 2024-08-17 18:06 | XMS_ITS | Referral Summary ---
Author Organization [facility] Address [address] [address] Phone Care Team Providers Care Metal Finish Inspector Name Role Phone No, Physician Primary Care Provider [phone] Encounters Date Type Department Care Team Description 06/28/2024 9:41 AM FREIGHT BRAKEMAN Anesthesia Event [address] [address] Valerie Rocha MD Reinersman, Chelsea Couch, RESEARCH ASSOCIATE MOLECULAR BIOLOGY 06/28/2024 9:00 AM FREIGHT BRAKEMAN - 06/28/2024 9:30 AM FREIGHT BRAKEMAN Surgery [address] [address] Denisse Parmar MD COLONOSCOPY 06/28/2024 8:15 AM FREIGHT BRAKEMAN - 06/28/2024 10:41 AM FREIGHT BRAKEMAN Hospital Encounter [address] [address] Denisse Parmar MD Discharge Disposition: Discharge to home or self care from Last 3 Months Allergies No known active allergies Medications MULTIVITAMIN ORAL Take by mouth daily Active CALCIUM CITRATE-VITAMIN D3 ORAL Take by mouth daily Active omega-3 fatty acids-fish oil 300-1,000 mg capsule Take 2 capsules (2 g total) by mouth daily Active Active Problems Problem Noted Date Diagnosed Date Personal history of colonic polyps 10/16/2023 Encounter for screening colonoscopy 10/16/2023 Hypertriglyceridemia 07/01/2022 Immunizations Immunization Administration Dates Next Due Influenza, Quadrivalent, Savannah l Culture-based MDCK, Antibiotic Free, Intramuscular 03/13/2019 Influenza, Quadrivalent, Savannah l Culture-based MDCK, Preservative Free, Antibiotic Free, Intramuscular 05/13/2023,03/27/2018 Influenza, Quadrivalent, Spl it, Preservative Free, Intramuscular 03/21/2022 Influenza, Trivalent, Preservative Free, Intramu scular 05/29/2014 ZOSTER Recombinant 11/01/2022,07/05/2022 Social History Tobacco Use Types Packs/Day Years [...] on file Legal Sex Female 5:38 PM FREIGHT BRAKEMAN Gender Identity Not on file Sexual Orientation Not on file Last Filed Vital Signs Vital Sign Reading Time Taken Comments Blood Pressure 120/77 06/28/2024 10:31 AM FREIGHT BRAKEMAN Pulse 81 06/28/2024 10:31 AM FREIGHT BRAKEMAN Temperature 36.8 C (98.2 F) 06/28/2024 10:31 AM FREIGHT BRAKEMAN Respiratory Rate 18 06/28/2024 10:31 AM FREIGHT BRAKEMAN Oxygen Saturation 95% 06/28/2024 10:31 AM FREIGHT BRAKEMAN Inhaled Oxygen Concentration - - Weight 70.3 kg (155 lb) 06/28/2024 8:37 AM FREIGHT BRAKEMAN Height 177.8 cm (5' 10 ) 06/28/2024 8:37 AM FREIGHT BRAKEMAN Body Mass Index 22.24 06/28/2024 8:37 AM FREIGHT BRAKEMAN Plan of Treatment Not on file Procedures Procedure Name Priority Date/Time Associated Diagnosis Comments COLONOSCOPY 06/28/2024 9:36 AM FREIGHT BRAKEMAN Personal history of colonic polyps Encounter for screening colonoscopy HM COLONOSCOPY Routine 06/28/2024 9:34 AM FREIGHT BRAKEMAN COLONOSCOPY 06/28/2024 8:25 AM FREIGHT BRAKEMAN MAMMOGRAPHY Schedule Routine, Read Routine (OP Routine) 02/27/2024 2:28 PM CDT from Last 3 Months or Most Recently Relevant to Health Maintenance Results * HM COLONOSCOPY (06/28/2024 9:34 AM FREIGHT BRAKEMAN) us Historical Provider MD HEALTH MAINTENANCE Final Result * Colonoscopy (06/28/2024 8:25 AM FREIGHT BRAKEMAN) Anatomical Region Laterality Modality Other Narrative Procedure Note Denisse Parmar MD - 06/28/2024 8:25 AM CST [facility] Patient Name: Nova Thomason Procedure Date: 06/28/2024 8:25 AM Date of : 1960 Admit Type: Outpatient Age: 64 Gender: Female Attending MD: Denisse Parmar M.D. Room: [facility] ENDOSCOPY ROOM 3 Note Status: Finalized Patient Profile: This is a 64 year old female history of hypertriglyceridemia here for colon polyp surveillance. Remote colonoscopy per patient with benign polyps. No family hx of colon cancer. Procedure: Colonoscopy Indications: High risk colon cancer surveillance: Personalhistory of colonic polyps, Last colonoscopy 10 years ago Referring MD: Amber Magaña M.D. Providers: Yixi Tu, M.D. Impression: - Hemorrhoids found on perianal [...] procedure were verified by the physician, the fish net maker and the data acquisition technician in the endoscopy suite. Mental Status [...] under direct vision. The Pediatric Colonoscope PCF-H190L [id number] was introducedthrough the anus and advanced to [...] perforation orabscess without bleeding CPT copyright 2020 [employer]. All rights reserved. The codes documented in this report are preliminary and upon wireless retail manager reviewmay be revised to meet current compliance requirements. Recognized by the [place] [employer] for promoting quality in endoscopy Denisse Parmar MD ENDOSCOPY PROCEDURES Final Resul t * MAMMOGRAPHY (02/27/2024 2:28 PM CDT) Anatomical Region Laterality Modality Breast Mammography Historical Provider IMG MAMMO PROCEDURES Mona l Result from Last 3 Months or Most Recently Relevant to Health Maintenance Insurance ANTHEM ACCESS Advance Directives For more information, please contact: [phone] * Full Code (Latest Code Status on File) Date Activated Date Inactivated Comments 06/28/2024 8:30 AM 06/28/2024 2:46 PM * Full Code Date Activated Date Inactivated Comments 06/28/2024 8:30 AM 06/28/2024 8:30 AM Care Teams Metal Finish Inspector Relationship Specialty Start Date End Date No, Physician PCP - General 06/17/24
--- OUTSIDE RECORDS SUMMARY | 2024-08-17 18:06 | XMS_ITS | Clinical Summary ---
Author Organization [facility] Address [address] [address] Care Team Providers Care Mercury Recoverer Name Role Phone Jean Gallo MD Primary Care Provider [phone] Source Comments [facility],non-owned Affiliates and Associated Physician Practices is amultiple site organization consisting of ambulatory clinics and hospital sitesin [place], [place], [place] and [place]. This disclosure is being madepursuant to the Care Everywhere program and may not contain all information available regarding this patient. Last updated 18.[facility] Allergies No known active allergies Medications * Be aware that medications may not be up to date on this document. Alwaysverify current medications with the patient. Medication Sig Dispensed Refills Start Date End Date Status Calcium Citrate-Vitamin D (CALCIUM + D PO) Active Multiple Vitamin (MULTI VITAMIN DAILY PO) Active azithromycin (ZITHROMAX) 250 MG tabletIndications:Abn ormal sputum Take 2 tablets now, then 1 tablet daily for 4 days. 6 Tab 09/11/2016 Active albuterol HFA (PROVENTIL;VENTOLIN;P ROAIR) 108 (90 BASE) MCG/ACT inhalerIndications:Ac nilson bronchitis, unspecified organism Inhale 2 Puffs by mouth every 4 hours as needed 3 Inhaler 09/11/2016 Active Social History Tobacco Use Types Packs/Day Years Used Date Smoking Tobacco: Never Sex and Gender Information Value Date Recorded Sex Assigned at Not on file Gender Identity Not on file Sexual Orientation Not on file Last Filed Vital Signs Vital Sign Reading Time Taken Comments Blood Pressure 128/86 09/11/2016 10:30 AM CDT Pulse 66 09/11/2016 10:30 AM CDT Temperature 36.9 C (98.4 F) 09/11/2016 10:30 AM CDT Respiratory Rate 16 09/11/2016 10:30 AM CDT Oxygen Saturation 95% 09/11/2016 10:30 AM CDT Inhaled Oxygen Concentration - - Weight 68 kg (150 lb) 09/11/2016 10:30 AM CDT Height 177.8 cm (5' 10 ) 09/11/2016 10:30 AM CDT Body Mass Index 21.52 09/11/2016 10:30 AM CDT Plan of Treatment Health Maintenance Due Date Last Done Comments COLOGUARD (AGES 45-75) - COL ON CA SCREENING 1960 COLON MONITORING 1960 COLONOSCOPY - COLON CA SCREENING 1960 CT COLONOGRAPHY - COLON CA SCREENING 1960 Colorectal Cancer Screening 1960 FIT - COLON CA SCREENING 1960 FLEX SIG - COLON CA SCREENING 1960 LIPID TESTING 1960 MAMMOGRAM 1960 PAP SMEAR 1960 HIV SCREENING 01/21/1976 HEPATITIS C SCREENING 01/16/1979 DTAP/TDAP/TD VACCINES (1 - Tdap) 01/21/1980 PNEUMOCOCCAL VACCINE 50+ (1 of 1 - PCV) 2011 ZOSTER VACCINE (1 of 2) 2011 COVID-19 VACCINE ( - 2023-2 5 season) 2024 INFLUENZA VACCINE (#1) 2024 DEPRESSION SCREENING 06/02/2024 Respiratory Syncytial Virus (RSV) Vaccine Pt: or over 60 yrs (1 - 1-dose 75+ series) 01/21/2036 HEPATITIS B VACCINE Aged Out No longe r eligible based on patient's age to complete this topic HIB VACCINE Aged Out No longer eligi ble based on patient's age to complete this topic HPV VACCINE Aged Out No longer eligi ble based on patient's age to complete this topic MENINGOCOCCAL (Group B) VACC INE SHARED DECISION-MAKING Aged Out No longer eligibl e based on patient's age to complete this topic MENINGOCOCCAL GROUPS A/C/Y/W VACCINE Aged Out No longer eligible b ased on patient's age to complete this topic PNEUMOCOCCAL VACCINE Aged Out No long er eligible based on patient's age to complete this topic Care Teams Mercury Recoverer Relationship Specialty Start Date End Date Jean Gallo MD [address] [place] [address] PCP - General Family Medicine 09/11/16
[2024-08-17 19:51] VITALS: BP 164/99; PULSE 88; RESP 14; TEMP 36.9; O2SAT 95
--- OUTSIDE RECORDS SUMMARY | 2024-08-17 20:58 | XMS_ITS | Clinical Summary ---
Author Organization [facility] Address [address] Attn: Epic Prelude ADT [place] [address] Care Team Providers Care New Car Make Ready Mechanic Name Role Phone Jean Gallo MD Primary Care Provider [phone] Social History Tobacco Use Types Packs/Day Years Used Date Smoking Tobacco: Never Assessed Comments Unknown Sex and Gender Information Value Date Recorded Sex Assigned at Not on file Legal Sex Female 4:24 AM INCLUSION SPECIALIST Gender Identity Not on file Sexual Orientation [...] - 1-dose 75+ series) 01/21/2036 Care Teams New Car Make Ready Mechanic Relationship Specialty Start Date End Date Jean Gallo MD [address] [place] [address] PCP - General 09/20/04
--- OUTSIDE RECORDS SUMMARY | 2024-08-17 20:58 | XMS_ITS | Referral Summary ---
Author Organization [facility] Address [address] [address] Phone Care Team Providers Care Pickling Tank Operator Name Role Phone No, Physician Primary Care Provider Encounters Date Type Department Care Team Description 06/28/2024 9:41 AM ACCOUNTANT AUDITOR Anesthesia Event [address] [address] Valerie Rocha MD Reinersman, Chelsea Couch, PLASTIC PARTS FABRICATOR TRIMMER 06/28/2024 9:00 AM ACCOUNTANT AUDITOR - 06/28/2024 9:30 AM ACCOUNTANT AUDITOR Surgery [address] [address] Denisse Parmar MD COLONOSCOPY 06/28/2024 8:15 AM ACCOUNTANT AUDITOR - 06/28/2024 10:41 AM ACCOUNTANT AUDITOR Hospital Encounter [address] [address] Denisse Parmar MD Discharge Disposition: Discharge to [...] on file Legal Sex Female 5:38 PM ACCOUNTANT AUDITOR Gender Identity Not on file Sexual Orientation Not on file Last Filed Vital Signs Vital Sign Reading Time Taken Comments Blood Pressure 120/77 06/28/2024 10:31 AM ACCOUNTANT AUDITOR Pulse 81 06/28/2024 10:31 AM ACCOUNTANT AUDITOR Temperature 36.8 C (98.2 F) 06/28/2024 10:31 AM ACCOUNTANT AUDITOR Respiratory Rate 18 06/28/2024 10:31 AM ACCOUNTANT AUDITOR Oxygen Saturation 95% 06/28/2024 10:31 AM ACCOUNTANT AUDITOR Inhaled Oxygen Concentration - - Weight 70.3 kg (155 lb) 06/28/2024 8:37 AM ACCOUNTANT AUDITOR Height 177.8 cm (5' 10 ) 06/28/2024 8:37 AM ACCOUNTANT AUDITOR Body Mass Index 22.24 06/28/2024 8:37 AM ACCOUNTANT AUDITOR Plan of Treatment Not on file Procedures Procedure Name Priority Date/Time Associated Diagnosis Comments COLONOSCOPY 06/28/2024 9:36 AM ACCOUNTANT AUDITOR Personal history of colonic polyps Encounter for screening colonoscopy HM COLONOSCOPY Routine 06/28/2024 9:34 AM ACCOUNTANT AUDITOR COLONOSCOPY 06/28/2024 8:25 AM ACCOUNTANT AUDITOR MAMMOGRAPHY Schedule Routine, Read Routine (OP Routine) 02/27/2024 2:28 PM CDT from Last 3 Months or Most Recently Relevant to Health Maintenance Results * HM COLONOSCOPY (06/28/2024 9:34 AM ACCOUNTANT AUDITOR) us Historical Provider MD HEALTH MAINTENANCE Final Result * Colonoscopy (06/28/2024 8:25 AM ACCOUNTANT AUDITOR) Anatomical Region Laterality Modality Other Narrative Procedure Note Denisse Parmar MD - 06/28/2024 8:25 AM CST [facility] Patient Name: Nova Thomason Procedure Date: 06/28/2024 8:25 AM Date of : 1960 Admit Type: Outpatient Age: 64 Gender: Female Attending MD: Denisse Parmar M.D. Room: [facility] ENDOSCOPY ROOM 3 Note Status: Finalized [...] procedure were verified by the physician, the internet e commerce specialist and the generation technician in the endoscopy suite. Mental Status [...] under direct vision. The Pediatric Colonoscope PCF-H190L [id number] was introducedthrough the anus and advanced to [...] perforation orabscess without bleeding CPT copyright 2020 [place]. All rights reserved. The codes documented in this report are preliminary and upon wood technologist reviewmay be revised to meet current compliance requirements. Recognized by the [place] [employer] for promoting quality in endoscopy Denisse Parmar MD ENDOSCOPY PROCEDURES Final Resul t * MAMMOGRAPHY (02/27/2024 2:28 PM CDT) Anatomical Region Laterality Modality Breast Mammography Historical Provider IMG MAMMO PROCEDURES Mona l Result from Last 3 Months or Most Recently Relevant to Health Maintenance Insurance ANTHEM ACCESS Advance Directives For more information, please contact: [phone] * Full Code (Latest Code Status on File) Date Activated Date Inactivated Comments 06/28/2024 8:30 AM 06/28/2024 2:46 PM * Full Code Date Activated Date Inactivated Comments 06/28/2024 8:30 AM 06/28/2024 8:30 AM Care Teams Pickling Tank Operator Relationship Specialty Start Date End Date No, Physician PCP - General 06/17/24
--- OUTSIDE RECORDS SUMMARY | 2024-08-17 20:58 | XMS_ITS | Clinical Summary ---
Author Organization [facility] Address [address] [place] [address] Care Team Providers Care Car Shifter Name Role Phone Jean Gallo MD Primary Care Provider [phone] Source Comments [facility],non-owned Affiliates and Associated Physician Practices is amultiple site organization consisting of ambulatory clinics and hospital sitesin [place], [place], [place] and [place]. This disclosure is being madepursuant to the Care Everywhere program and may not contain all information available regarding this patient. Last updated 18.[facility] Allergies No known active allergies Medications * [...] age to complete this topic Care Teams Car Shifter Relationship Specialty Start Date End Date Jean Gallo MD [address] [place] [address] PCP - General Family Medicine 09/11/16
--- OUTSIDE RECORDS SUMMARY | 2024-08-17 20:58 | XMS_ITS | Clinical Summary ---
Author Organization [facility] Address [address] [address] Phone Care Team Providers Care Property Preservation Specialist Name Role Phone No, Physician Primary Care Provider [phone] Allergies No known active allergies Medications MULTIVITAMIN [...] Department Care Team Description 06/28/2024 9:41 AM TRAFFIC COUNTER Anesthesia Event [address] [address] Valerie Rocha MD Reinersman, Chelsea Couch, DIRECTOR INTELLIGENCE ANALYSIS PROGRAMS 06/28/2024 9:00 AM TRAFFIC COUNTER - 06/28/2024 9:30 AM TRAFFIC COUNTER Surgery [address] [address] Denisse Parmar MD COLONOSCOPY 06/28/2024 8:15 AM TRAFFIC COUNTER - 06/28/2024 10:41 AM TRAFFIC COUNTER Hospital Encounter [address] [address] Denisse Parmar MD Discharge Disposition: Discharge to [...] on file Legal Sex Female 5:38 PM TRAFFIC COUNTER Gender Identity Not on file Sexual Orientation Not on file Obstetrics History Last Filed Vital Signs Vital Sign Reading Time Taken Comments Blood Pressure 120/77 06/28/2024 10:31 AM TRAFFIC COUNTER Pulse 81 06/28/2024 10:31 AM TRAFFIC COUNTER Temperature 36.8 C (98.2 F) 06/28/2024 10:31 AM TRAFFIC COUNTER Respiratory Rate 18 06/28/2024 10:31 AM TRAFFIC COUNTER Oxygen Saturation 95% 06/28/2024 10:31 AM TRAFFIC COUNTER Inhaled Oxygen Concentration - - Weight 70.3 kg (155 lb) 06/28/2024 8:37 AM TRAFFIC COUNTER Height 177.8 cm (5' 10 ) 06/28/2024 8:37 AM TRAFFIC COUNTER Body Mass Index 22.24 06/28/2024 8:37 AM TRAFFIC COUNTER Plan of Treatment Health Maintenance Due Date [...] Associated Diagnosis Comments COLONOSCOPY 06/28/2024 9:36 AM TRAFFIC COUNTER Personal history of colonic polyps Encounter for screening colonoscopy HM COLONOSCOPY Routine 06/28/2024 9:34 AM TRAFFIC COUNTER COLONOSCOPY 06/28/2024 8:25 AM TRAFFIC COUNTER MAMMOGRAPHY Schedule Routine, Read Routine (OP Routine) 02/27/2024 2:28 PM CDT from Last 3 Months or Most Recently Relevant to Health Maintenance Results * HM COLONOSCOPY (06/28/2024 9:34 AM TRAFFIC COUNTER) us Historical Provider HEALTH MAINTENANCE Final Result * Colonoscopy (06/28/2024 8:25 AM TRAFFIC COUNTER) Anatomical Region Laterality Modality Other Narrative Procedure Note Denisse Parmar MD - 06/28/2024 8:25 AM CST [facility] Patient Name: Nova Thomason Procedure Date: 06/28/2024 8:25 AM Date of : 1960 Admit Type: Outpatient Age: 64 Gender: Female Attending MD: Denisse Parmar M.D. Room: [facility] ENDOSCOPY ROOM 3 Note Status: [...] procedure were verified by the physician, the deputy clerk and the collections technician in the endoscopy suite. Mental Status [...] under direct vision. The Pediatric Colonoscope PCF-H190L [id number] was introducedthrough the anus and advanced to [...] perforation orabscess without bleeding CPT copyright 2020 [employer]. All rights reserved. The codes documented in this report are preliminary and upon professional fee coder reviewmay be revised to meet current compliance requirements. Recognized by the [place] [employer] for promoting quality in endoscopy Denisse Parmar MD ENDOSCOPY PROCEDURES Final Resul t * MAMMOGRAPHY (02/27/2024 2:28 PM CDT) Anatomical Region Laterality Modality Breast Mammography Historical Provider IMG MAMMO PROCEDURES Mona l Result from Last 3 Months or Most Recently Relevant to Health Maintenance Insurance [facility] Advance Directives For more information, please contact: [phone] * Full Code (Latest Code Status on File) Date Activated Date Inactivated Comments 06/28/2024 8:30 AM 06/28/2024 2:46 PM * Full Code Date Activated Date Inactivated Comments 06/28/2024 8:30 AM 06/28/2024 8:30 AM Care Teams Property Preservation Specialist Relationship Specialty Start Date End Date No, Physician PCP - General 06/17/24
--- OUTSIDE RECORDS SUMMARY | 2024-08-17 20:58 | XMS_ITS | Encounter Summary ---
Author Organization [facility] Address [address] [place] [address] Care Team Providers Care Histopathology Technician Name Role Phone Jean Gallo MD Primary Care Provider [phone] Encounter Details Date Type Department Care Team (Latest Contact Info) Description 09/20/2004 Outpatient Historical [facility] Mark Miller MD NO ADDRESS ON FILE LUMBAR DISC DISPLACEMENT (Primary Dx) Social History Tobacco Use Types Packs/Day Years Used Date Smoking Tobacco: Never Assessed Comments Unknown Sex and Gender Information Value Date Recorded Sex Assigned at Not on file Legal Sex Female 4:24 AM CPAS Gender Identity Not on file Sexual Orientation [...] Primary documented in this encounter Care Teams Histopathology Technician Relationship Specialty Start Date End Date Jean Gallo MD [address] [place] [address] PCP - General 09/20/04 documented as of this encounter
[2024-08-17 21:22] VITALS: BP 151/82; PULSE 79; RESP 18; O2SAT 97
== END 2024-08-17 21:23 | disposition home or self-care (01) ==
PROVIDERS: Emergency Provider Physician Assistant
DX: M25.562 Pain in left knee (principal); Z87.442 Personal history of urinary calculi
CPT/HCPCS: 73562; 93971; 99284; A9270

== ENCOUNTER 2025-02-28 14:54 | Outpatient (CLI) | payer BC, SELFPAY ==
--- NOTE | ~2025-02-28 | MM_ITS ---
EXAMINATION: MM screening [facility] BI w ricky HISTORY: Screening TECHNIQUE: Craniocaudal and mediolateral oblique 3-D tomosynthesis images were obtained and synthetic 2-D images were generated. CAD analysis was submitted and interpreted. COMPARISON: Comparison to multiple prior studies sequentially, with oldest reviewed study dated 08/02/2022. BREAST PARENCHYMAL COMPOSITION: Dense: The breasts are heterogeneously dense, which may obscure small masses FINDINGS: Stable benign low-density mass lower inner quadrant of the left breast partially obscured by fibroglandular tissue. There is no evidence of suspicious mass, calcification, or architectural distortion to suggest malignancy in either breast. There has been no suspicious interval change. IMPRESSION: 1. No mammographic evidence of malignancy. 2. Recommend routine screening mammography in one year. BI-RADS Category 2: Benign finding(s). Reviewed, dictated and finalized at location B.
== END 2025-02-28 14:55 | disposition home or self-care (01) ==
PROVIDERS: PCP Nurse Practitioner Family; Visit Provider Nurse Practitioner Family
DX: Z12.31 Encounter for screening mammogram for malignant neoplasm of breast (principal)
CPT/HCPCS: 77063; 77067

== ENCOUNTER 2025-05-05 17:01 | Emergency (ER) | payer BC, SELFPAY ==
--- NOTE | 2025-05-05 17:02 | ED_ITS ---
HPI - Female Genitourinary General Chief complaint: Urogenital-Female Stated complaint: UTI SYMPTOMS Time Seen by Provider: 05/05/25 17:02 Source: patient Mode of arrival: ambulatory Limitations: no limitations History of Present Illness HPI Narrative: Nova is a 65-year-old female patient presenting to the clinic today with complaints low urine output, urinary frequency, urgency, and lower abdominal cramping. She reports symptoms have been going on for 2 days. She has not taken any medications for her symptoms. Denies any fevers, chills, body aches. No nausea or vomiting. Related Data Allergies Allergy/AdvReac Type Severity Reaction Status Date / Time No Known Allergies Allergy Verified 05/05/25 17:16 Review of Systems Review of Systems: Pertinent positives per HPI. Patient denies any fever, chills, rash, headache, visual changes, dizziness, cough, runny nose, sore throat, shortness of breath, chest pain, palpitations, nausea, vomiting, diarrhea, constipation PMFSH Past Medical History Medical History Back pain Hx of renal calculi Surgical History Surgical History H/O Spinal surgery History of cholecystectomy Hx of bladder repair surgery Family History Family History Other No acute medical problems Social History Social History Smoking status: Never smoker Alcohol intake: current Substance use type: does not use Living arrangements: with family Gender identity (if verbalized by the patient): Female Comments At the time of my signature, I reviewed and agree with the nursing past medical, surgical, social, and family history. There is no relevant family history pertinent to the patient complaint. Exam Narrative: General: Well-developed, well nourished, in no apparent distress. Head: Normocephalic, atraumatic. Cardio: Regular rate and rhythm, s1 and s2 normal, no murmur appreciated. Resp: Clear to auscultation bilaterally, no rhonchi, rales, wheezing or rubs. Abdomen: Soft, pliable, bowel sounds present in all quadrants, suprapubic tender to palpation, no organomegly, no CVAT tenderness. Course Course Level of Care: Express Care Visit Vital Signs Vital signs: Vital Signs Temperature 36.3 C L 05/05/25 17:17 Pulse Rate 91 05/05/25 17:17 Respiratory Rate 16 05/05/25 17:17 Blood Pressure 164/99 H 05/05/25 17:17 Pulse Oximetry 100 05/05/25 17:17 Temperature 36.3 C L 05/05/25 17:17 Pulse Rate 91 05/05/25 17:17 Respiratory Rate 16 05/05/25 17:17 Blood Pressure 164/99 H 05/05/25 17:17 Pulse Oximetry 100 05/05/25 17:17 MDM MDM Narrative Medical decision making narrative: At the time of visit patient is resting comfortably on the exam table. Patient appears to be nontoxic. Complaints low urine output, urinary frequency, urgency, and lower abdominal cramping. She reports symptoms have been going on for 2 days. She has not taken any medications for her symptoms. Denies any fevers, chills, body aches. No nausea or vomiting. On exam patient has soft, pliable, nondistended abdomen, bowel sounds present all 4 quadrants, suprapubic tenderness, no CVAT tenderness. Urinalysis positive for 3+ leukocytes, positive nitrate, trace of blood, and 2+ protein. We will send urine for culture. Plan: Suspect patient has UTI. Prescription for Bactrim was sent to the pharmacy. Supportive measures were discussed with the patient and they voiced understanding discharge instructions and agrees to treatment plan. Return precautions reviewed Differential Diagnosis Differential Diagnosis: Differential diagnostic considerations for female urogenital issues include urinary tract infection, bacterial vaginosis, cervicitis, ovarian cyst, vaginitis, STI exposure, ovarian torsion, ectopic , cyst of Bartholin?s gland, cystitis, dysmenorrhea. Lab Data Labs: Lab Results 05/05/25 Range/Units 17:18 POC Urine Color Yellow POC Urine Clarity Cloudy POC Urine pH 7.0 POC Ur Specif [place] 1.020 POC Urine Protein 2+ (Negative) POC Ur Glucose (UA) Negative (Negative) POC Urine Ketones Negative (Negative) POC Urine Blood Trace (Negative) POC Urine Nitrite Positive (Negative) POC Urine Bilirubin Negative (Negative) POC Urine Urobilinogen 0.2 POC U Leukocyte Esteras 3+ (Negative) Discharge Plan Discharge Clinical Impression: UTI (urinary tract infection) Qualifiers: Urinary tract infection type: site unspecified Hematuria presence: without hematuria Qualified Code(s): N39.0 - Urinary tract infection, site not specified Patient Disposition: Home Condition: Stable Instructions: Antibiotic Form, Urinary Tract Infection in Women (ED) Additional Instructions: Urinalysis positive for leukocytes, nitrates, protein, and blood. We will send urine for culture. Take Bactrim as prescribed Increase fluids and stay well hydrated Wipe front to back. May use wet wipes. Avoid tub baths If sexually active- pee before and after intercourse. Wear cotton panties Avoid tight clothing up against the genitals Follow up with your PCP in 1 week if symptoms persist. Patient Language: Tu[place] Prescriptions: New sulfamethoxazole-trimethoprim [Bactrim DS] 800-160 mg tablet 1 tablet PO Q12H 5 Days Qty: 10 0RF No Action ibuprofen 600 mg tablet 600 mg PO QID PRN (Reason: pain) Qty: 30 0RF Rx Instructions: take with food Follow-up/Referrals: Leoncio,ANA Lee [Primary Care Provider, Unknown] Time of Disposition: 17:20 Quality NIHSS Nursing Documentation ED NIHSS nursing documentation: reviewed/agree
[2025-05-05 17:17] VITALS: BP 164/99; PULSE 91; RESP 16; TEMP 36.3; O2SAT 100
[2025-05-05 17:20] LABS: EDUAAPPEAR Cloudy; EDUABILI Negative (Negative); EDUABLOOD Trace (Negative); EDUACOLOR1 Yellow; EDUAGLUCOSE Negative (Negative); EDUAKETONE Negative (Negative); EDUALEUKO 3+ (Negative); EDUANITRATE Positive (Negative); EDUAPH 7.0; EDUAPROTEIN 2+ (Negative); EDUASPGRAVITY 1.020; EDUAUROBILI 0.2
== END 2025-05-05 17:26 | disposition home or self-care (01) ==
PROVIDERS: Emergency Provider Nurse Practitioner Family; PCP Nurse Practitioner Family
DX: N39.0 Urinary tract infection, site not specified (principal)
CPT/HCPCS: 81003; 87077; 87086; 87186; 99213; G0463